=== PATIENT | male | born 1945 | race Caucasian/White ===

== ENCOUNTER 2022-09-01 00:50 | Outpatient (CLI) | payer OTHER, SELFPAY | END 2022-09-01 00:51 | disposition home or self-care (01) | LOC: AMB 09-19 15:32 | PROVIDERS: PCP Internal Medicine; Visit Provider Family Medicine | DX: R10.9 Unspecified abdominal pain (principal); R53.1 Weakness; R11.2 Nausea with vomiting, unspecified | CPT/HCPCS: A0425; A0433 ==